=== PATIENT | male | born 1985 | race Caucasian/White ===

== ENCOUNTER → 2019-09-02 | Outpatient (CLI) | payer BC ==
--- NOTE | 2019-09-06 17:29 | Polysomnography ---
DATE OF STUDY: 09/02/2019 REFERRING PHYSICIAN: Oumar Agrawal MD INTERPRETING PHYSICIAN: Oumar Agrawal MD. STUDY: INTERPRETATION of HOME SLEEP TEST (HST) IMPRESSION: 1. Moderate obstructive sleep apnea with associated oxygen desaturations, with apnea-hypopnea index (AHI) of 15.9. 2. Moderate snoring was noted. 3. No limb movement disorder observed. RECOMMENDATIONS: 1. Initiate titration for continuous positive airway pressure therapy (CPAP). 2. ENT evaluation to consider surgical options to correct sleep-disordered breathing. 3. Avoid consumption of alcohol or sedatives before bedtime. 4. Avoid caffeine and exercise within 3-4 hours prior to bedtime. 5. Weight reduction to ideal body weight. 6. Advise patient that excessive daytime sleepiness could pose a danger to the patient and others while driving or operating heavy machinery, and to use caution until symptoms are treated and improved. 7. Patient to follow up with physician to discuss results of study. Oumar Agrawal MD JKY/MODL /[id number] MTDD
== END ==
LOC: SLEEP 21:23
PROVIDERS: ATTEND Otolaryngology
DX: G47.33 Obstructive sleep apnea (adult) (pediatric) (principal)
CPT/HCPCS: 95806